=== PATIENT | male | born 1995 | race Caucasian/White ===

== ENCOUNTER 2017-06-14 07:43 | Emergency (ER) | payer OTHER ==
[~2017-06-14 07:43] MED LIST: methylPREDNISolone 4 MG TAB PO SCH
[2017-06-14 07:49] VITALS: RESP 16
[2017-06-14] MEDS ORDERED: DIAZEPAM 10 MG/2 ML SYR IVP ONE (08:08)
[2017-06-14] MEDS ORDERED: KETOROLAC 30 MG/1 ML SDV IVP ONE (08:08)
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
[2017-06-14 09:25] VITALS: BP 133/88; PULSE 80; TEMP 97.5; O2SAT 98
--- NOTE | 2017-06-14 10:00 | ASMTCMCOM ---
CM Note CM Note Notes: Requested to speak to patient about local homeless resources. Provided patient with homeless resources and recommended he follow up with [facility]; pt stated "I know about all that stuff, I just need a ride back to the resources." Patient was requesting transportation assistance back to [facility]. Pt was brought in by ambulance. Patient was informed that because no acute injury was identified and because he could physically ambulate without assistance, we are not able to provide transportation assistance at this time because those resources are available to acute and emergent situations. Pt is visiting from [place], "I came up here for work but haven't found much." Pt has no local friends or family. Pt is staying "outside." Pt is able to ambulate without assistance but grimaces and winces in pain when standing, bending down to backpack and walking. Pt has had xrays and is medically clear. Pt has been recommended to take Ibuprofen "but I don't have any money to buy it." Pt states he has medical insurance. This CM offered to procure a prescription for Ibuprofen so that his will cover it for very little cost or it may have no copay, patient responded "I don't even have very little, that wont work. I just need to get out of here." Patient ambulated to the waiting room, carrying a medium backpack without assistance. Date Signed: 06/14/2017 10:00 AM Electronically Signed By:Brooke Brumfield
--- NOTE | 2017-06-14 11:49 | ASDISCHSUM ---
Discharge Information Plan Status:Homeless/[facility] Medically Cleared to Leave:06/14/2017 Discharge Date:06/14/2017 09:25 AM CM D/C Disposition:Home, Routine, Self-Care ADT D/C Disposition:Home, Routine, Self-Care Projected Discharge Date:06/14/2017 09:25 AM Transportation at D/C:Self Discharge Delay Reason: Follow-Up Date:06/14/2017 09:25 AM Discharge Slot: Final Diagnosis: Placement Information Patient Contact Information Contact Name:VARSHA Relationship: Address: Home Phone: Work Phone: City: Alternate Phone: State/Zip Code: Email: Financial Information Financial Class:HMO and PPO Plans Primary Plan Desc:[facility] Primary Plan Number:[id number] Secondary Plan Desc: Secondary Plan Number: Assessment Information [facility] Progress Note CM Note CM Note Notes: Requested to speak to patient about local homeless resources. Provided patient with homeless resources and recommended he follow up with [facility]; pt stated "I know about all that stuff, I just need a ride back to the resources." Patient was requesting transportation assistance back to [facility]. Pt was brought in by ambulance. Patient was informed that because no acute injury was identified and because he could physically ambulate without assistance, we are not able to provide transportation assistance at this time because those resources are available to acute and emergent situations. Pt is visiting from [place], "I came up here for work but haven't found much." Pt has no local friends or family. Pt is staying "outside." Pt is able to ambulate without assistance but grimaces and winces in pain when standing, bending down to backpack and walking. Pt has had xrays and is medically clear. Pt has been recommended to take Ibuprofen "but I don't have any money to buy it." Pt states he has medical insurance. This CM offered to procure a prescription for Ibuprofen so that his will cover it for very little cost or it may have no copay, patient responded "I don't even have very little, that wont work. I just need to get out of here." Patient ambulated to the waiting room, carrying a medium backpack without assistance. Date Signed: 06/14/2017 10:00 AM Electronically Signed By:Brooke Brumfield [facility] Progress Note CM Note CM Note Notes: Patient re-presented to the ED to check in for back pain. This CM went out to waiting area and spoke with patient. Pt states he has not incurred any new injury since recent ED discharge but "the pain is so bad I can barely walk or stand for more than 5 minutes at a time." Discussed with patient how the ED offered him Ibuprofen Rxn to be filled for him and about how the ED has ruled out any emergent and acute injuries and he needs to follow up outpatient. Pt more open to the idea of Ibuprofen Rxn at this time. This CM spoke with pt's ED provider PA. Nilam, and she offered either Ibuprofen Rxn or Medrol Juan Rxn but no other treatment option is available for his symptoms at this time and she will not be providing a narcotic pain medication Rxn whatsoever. Pt reminded that he was administered Valium and Toradol medications via IV while in the ED. Pt has opted for the Medrol Juan and was provided a Medrol Juan Rxn via our [email or web address] program because he states he has no money. While waiting for Rxn to be filled, pt was on the phone with his father while in the waiting area and this CM provided an ice pack. Date Signed: 06/14/2017 11:48 AM Electronically Signed By:Brooke Brumfield Intervention Information
== END 2017-06-14 09:25 | disposition home or self-care (01) ==
DX: S20.211A Contusion of right front wall of thorax, initial encounter (principal); M62.830 Muscle spasm of back; F17.200 Nicotine dependence, unspecified, uncomplicated; Y04.0XXA Assault by unarmed brawl or fight, initial encounter; Y99.8 Other external cause status; Y93.39 Activity, other involving climbing, rappelling and jumping off
CPT/HCPCS: 96374; J1885

== ENCOUNTER 2017-06-14 10:26 | Emergency (ER) | payer OTHER ==
[2017-06-14 10:29] VITALS: BP 151/83; PULSE 74; RESP 20; TEMP 98.6; O2SAT 98
--- NOTE | 2017-06-14 15:17 | ASDISCHSUM ---
Discharge Information Plan Status: Medically Cleared to Leave: Discharge Date:06/14/2017 11:36 AM CM D/C Disposition: ADT D/C Disposition:Left Without Being Seen Projected Discharge Date:06/14/2017 11:36 AM Transportation at D/C: Discharge Delay Reason: Follow-Up Date:06/14/2017 11:36 AM Discharge Slot: Final Diagnosis: Placement Information Patient Contact Information Contact Name:VARSHA Relationship: Address: Home Phone: Work Phone: City: Alternate Phone: State/[place] Code: Email: Financial Information Financial Class:HMO and PPO Plans Primary Plan Desc:[facility] Primary Plan Number:[id number] Secondary Plan Desc: Secondary Plan Number: Assessment Information Intervention Information
== END 2017-06-14 11:36 | disposition left against medical advice (07) ==
DX: Z53.21 Procedure and treatment not carried out due to patient leaving prior to being seen by health care provider (principal)